=== PATIENT | male | born 1940 | race Caucasian/White ===

== ENCOUNTER 2016-10-12 07:00 | Day surgery (SDC) | payer MEDICARE, BC ==
[~2016-10-12] VITALS: Ht 180.3 cm; Wt 71.7 kg
[2016-10-12 08:28] LABS: BASOPHILS 0.7 % (0.0-2.0); EOSINOPHILS 1.6 % (0-7); HEMATOCRIT 31.8 % (42.0-54.0); HEMOGLOBIN 10.1 g/dL (13.5-17.5); IMMATURE GRANULOCYTES 0.2 % (0-5); LYMPHOCYTES 20.1 % (15-50); MCH 29.6 pg (26.0-34.0); MCHC 31.8 g/dL (31.0-37.0); MCV 93.3 fL (80.0-100.0); MEAN PLATELET VOLUME 8.9 fL (7.4-10.4); MONOCYTES 10.7 % (2-11); NEUTROPHILS 66.7 % (40-80); PLATELET COUNT 310 10x3/uL (130-400); RBC 3.41 10x6/uL (4.20-6.10); RDW 18.5 % (11.5-14.5); WBC 9.1 10x3/uL (4.8-10.8)
[2016-10-12 08:41] LABS: CALCIUM 7.7 mg/dL (8.5-10.1); CARBON DIOXIDE 24.1 mmol/L (21.0-32.0); CREATININE - SERUM 3.4 mg/dL (0.6-1.3); POTASSIUM - SERUM 4.1 mmol/L (3.5-5.1)
[2016-10-12 08:44] LABS: APTT 38.5 SECONDS (22.8-39.4); INR 1.12 (0.85-1.17); PROTIME 14.3 SECONDS (11.6-15.0)
[2016-10-12 09:49] VITALS: BP 147/87; Ht 180.3 cm; Wt 71.7 kg
--- NOTE | 2016-10-12 09:55 | NUR ---
0910--PT NON COMPLIANT WITH MED LIST, NO HOME MEDS LISTED. IVETTE OBRIEN
--- NOTE | 2016-10-12 16:16 | NUR ---
CONSUMED ALL OF FULL LIQUIDS. IV REMOVED INTACT. DISCHARGE INSTRUCTIONS GIVEN.
--- NOTE | 2016-10-14 07:35 | OP ---
PATIENT NAME: JOHN JHA MEDICAL RECORD: [id number] :40 LOCATION:[facility] ADMISSION DATE: SURGEON: RODRIGO MOORE MD DATE OF OPERATION: 10/12/2016 PREOPERATIVE DIAGNOSIS: 1. End-stage renal disease on hemodialysis via a left internal jugular tunneled dialysis catheter. 2. Chronic benign appearing possibly infectious skin lesion, right forearm. POSTOPERATIVE DIAGNOSIS: 1. End-stage renal disease on hemodialysis via a left internal jugular tunneled dialysis catheter. 2. Chronic benign appearing possibly infectious skin lesion, right forearm. OPERATION PERFORMED: Implantation of a right forearm Propaten 6-mm straight standard wall thickness PTFE graft in the brachial artery to cephalic vein loop configuration and incisional biopsy of skin lesion on medial aspect of the forearm. SURGEON: Rodrigo Moore M.D. ANESTHESIA: General with LMA per [facility]. REFERRING PHYSICIAN: Misha Maharaj M.D. PREOPERATIVE NOTE: This elderly deaf gentleman, 75-year-old white male has end-stage renal disease and is on dialysis and needs long-term access and has an adequate cephalic vein and brachial artery at the antecubital level to support a loop forearm graft for which he is brought to the OR today. He has a chronic skin lesion on the medial aspect of the volar or palmar surface of the right forearm. This had been more inflamed when first seen in my office a couple of weeks ago. It is much improved, but he does have areas of yellowish necrotic material, which perhaps resemble the sulfa granules of actinomycosis. Not knowing what this is; otherwise, I plan to do a skin biopsy. Under general anesthesia in supine position, the patient was prepped and draped in sterile manner. He was examined with ultrasound using a venous tourniquet and topical nitroglycerin. This confirmed a satisfactory brachial artery and median cubital vein and cephalic vein outflow. A transverse antecubital incision was made and the vessels were exposed and controlled with Silastic loops. A Lavina Propaten 6-mm straight standard wall thickness PTFE graft was chosen. The end was beveled and anastomosed end-to-side graft to vein with 6-0 Prolene and a counterincision was made distally on the forearm and the graft was placed in a hairpin shaped subcutaneous tunnel. Back in the antecubital space, the arterial end was shortened and beveled and anastomosed end-to-side to the brachial artery also with running 6-0 Prolene. Vein and artery were each flushed copiously with heparinized saline as soon as the venotomy and arteriotomy were made; otherwise, no systemic anticoagulation was utilized. The suture lines were treated with Evicel fibrin glue with the completion of the suturing to help ensure hemostasis. Some fibrillar hemostatic oxidized cellulose was also used on the arterial anastomosis. The wounds were irrigated with Ancef/gentamicin solution and then closed with interrupted inverted 3-0 Vicryl and running intracuticular 4-0 Monocryl. The wounds were then sealed further and closed with Dermabond glue and dressed with Maxorb Ag, Tegaderm and OPERATIVE REPORT [id number] JOHN JHA skin prep. I then took 2 separate incisional biopsies of the skin lesion and sent these specimens for routine H&E histopathology and also ____ labeled. Please rule out actinomycosis in a sterile culture container. The lateral wounds were dressed with Maxorb and Tegaderm and the patient awakened and taken to the recovery room in stable condition. Mr. Jha will be allowed to go home today. He will come back to see me in my office next week. He will continue all of his home medications and his renal diet. He is given no new prescriptions today. I anticipate that barring any infectious complications, his new graft can be utilized for access in probably 2-4 weeks. TRANSINT:[id number] Voice Confirmation ID: [id number] DOCUMENT ID: [id number] RODRIGO MOORE MD at 0735 CC: MISHA MAHARAJ MD [id number] DICTATION DATE: 10/12/16 1537 [place]: 10/12/16 2309 [facility] 10/12/16 [place] [id number] [place] [id number]
== END 2016-10-12 16:35 | disposition home or self-care (01) ==
LOC: D.OPS 07:00
PROVIDERS: Surgery
DX: E11.22 Type 2 diabetes mellitus with diabetic chronic kidney disease (principal); I12.0 Hypertensive chronic kidney disease with stage 5 chronic kidney disease or end stage renal disease; N18.6 End stage renal disease; Z99.2 Dependence on renal dialysis; L98.9 Disorder of the skin and subcutaneous tissue, unspecified